=== PATIENT | male | born 1995 | race Caucasian/White ===

== ENCOUNTER 2020-08-23 12:28 | Emergency (ER) | payer BC, MEDICAID ==
[~2020-08-23] VITALS: Ht 182.9 cm; Wt 83.9 kg
[2020-08-23] MEDS ORDERED: LOSARTAN (12:48)
[2020-08-23] MEDS ORDERED: PERCOCET (12:48)
[2020-08-23] MEDS ORDERED: ADVIL (12:48)
[2020-08-23] MEDS ORDERED: IV NORMAL SALINE 250 ML IV ONE (12:57)
[2020-08-23] MEDS ORDERED: IOHEXOL 300MG/ML 100 ML INFUS..BTL ONE (12:57)
[2020-08-23] MEDS ORDERED: SWABABLE VALVE TRANSFER SET EA MC ONE (12:57)
[2020-08-23] MEDS ORDERED: MORPHINE SULFATE 4 MG/1 ML DISP.SYRIN IV ONE (13:00)
[2020-08-23] MEDS ORDERED: ONDANSETRON 4 MG/2 ML VIAL IV ONE (13:00)
[2020-08-23] MEDS ORDERED: MORPHINE SULFATE 4 MG/1 ML DISP.SYRIN ONE (13:05)
[2020-08-23 13:18] LABS: BASOPHILS % (AUTO) 0.7 % (0.0-2.0); EOSINOPHILS # (AUTO) 0.1 K/uL (0.0-0.7); EOSINOPHILS % (AUTO) 1.5 % (0.0-7.0); HEMATOCRIT 45.2 % (36.7-47.1); HEMOGLOBIN 15.1 g/dL (12.5-16.3); LYMPHOCYTES # (AUTO) 1.8 K/uL (20.0-40.0); LYMPHOCYTES % (AUTO) 32.8 % (20.5-51.5); MEAN CORPUSCULAR HEMOGLOBIN 29.5 uug (23.8-33.4); MEAN CORPUSCULAR HGB CONC 33 g/dL (32.5-36.3); MEAN CORPUSCULAR VOLUME 88.3 fL (73.0-96.2); MONOCYTES # (AUTO) 0.7 K/uL (2.0-10.0); MONOCYTES % (AUTO) 12.3 % (0.0-11.0); NEUTROPHILS # (AUTO) 2.9 K/uL (1.8-8.9); NEUTROPHILS % (AUTO) 52.7 % (38.5-71.5); PLATELET COUNT (AUTO) 285 K/uL (152-348); RED BLOOD CELL COUNT(AUTO) 5.12 MIL/uL (4.06-5.63); WHITE BLOOD COUNT (AUTO) 5.6 K/uL (3.6-10.2)
[2020-08-23 13:25] LABS: POTASSIUM 3.8 mmol/L (3.5-5.1)
[2020-08-23 13:32] LABS: BILIRUBIN,DIRECT 0.2 mg/dL (0.0-0.2); BILIRUBIN,TOTAL 1.1 mg/dL (0.2-1.0); TOTAL PROTEIN, SERUM 7.5 g/dL (6.4-8.2)
[2020-08-23 14:49] LABS: *BILIRUBIN,URIN NEGATIVE (NEGATIVE); *BLOOD, URINE TRACE (NEGATIVE); *COLOR,URINE YELLOW (YELLOW); *KETONES,URINE NEGATIVE (NEGATIVE); *UROBILINOGEN,URINE 0.2 E.U./dl (NORMAL); LEUKOCYTE ESTERASE ,URINE NEGATIVE (NEGATIVE); NITRITE, URINE NEGATIVE (NEGATIVE); PH,URINE 5.5 (5.0-8.0); UGLUCOSE NEGATIVE (NEGATIVE)
[2020-08-23 14:50] LABS: *CLARITY,URINE SLIGHTLY CLOUDY (CLEAR)
[2020-08-23] MEDS ORDERED: KETOROLAC TROMETHAMINE 15 MG INJ IVP ONE (15:00)
[2020-08-23] MEDS ORDERED: KETOROLAC TROMETHAMINE 15 MG INJ ONE (15:07)
--- NOTE | 2020-08-23 15:40 | NUR ---
Patient discharged to home in stable condition. Written and verbal after care instructions given. Patient verbalizes understanding of instructions. Stressed follow up or return to ER for worsening s/s.pt walks in steady gait. pt says feels better, pain down to 2/10, tolerable. pt accompanied by "[employer]stant". pt not driving
[2020-08-23 16:13] VITALS: BP 137/81
[2020-08-23 19:51] LABS: BACTERIA,URINE FEW /HPF (NONE SEEN); SQUAMOUS EPITHELIAL CELL,UR NONE SEEN /HPF (NONE SEEN)
== END 2020-08-23 15:40 | disposition home or self-care (01) ==
LOC: ER 12:28
DX: N20.1 Calculus of ureter (principal); R94.31 Abnormal electrocardiogram [ECG] [EKG]; R03.0 Elevated blood-pressure reading, without diagnosis of hypertension
CPT/HCPCS: 36415; 71045; 74177; 80048; 80076; 81001; 83605; 83690; 84484; 85025; 85730; 93005; 96374; 96375; 99285; J1885; J2270; Q9967; 70030-TC; A4663; J7050

== ENCOUNTER 2021-05-04 14:40 | Emergency (ER) | payer BC ==
[~2021-05-04] VITALS: Ht 182.9 cm; Wt 83.9 kg
[~2021-05-04 14:40] MED LIST: ADVIL; LOSARTAN; PERCOCET
[2021-05-04 15:31] LABS: MEAN CORPUSCULAR HEMOGLOBIN 30.5 uug (23.8-33.4); MEAN CORPUSCULAR VOLUME 87.5 fL (73.0-96.2); PLATELET COUNT (AUTO) 267 K/uL (152-348)
[2021-05-04 15:33] LABS: CREATININE 0.9 mg/dL (0.6-1.3); POTASSIUM 3.8 mmol/L (3.5-5.1)
[2021-05-04 15:38] LABS: BILIRUBIN,TOTAL 0.7 mg/dL (0.2-1.0); TOTAL PROTEIN, SERUM 7.4 g/dL (6.4-8.2)
[2021-05-04] MEDS ORDERED: HYDROCODONE/APAP 5-325MG TABLET ONE (16:03)
[2021-05-04] MEDS ORDERED: HYDROCODONE/APAP 5-325MG TABLET PO STA (16:16)
[2021-05-04] MEDS ORDERED: HYDROCODONE/APAP 5-325MG TABLET PO ONE (16:30)
--- NOTE | 2021-05-04 17:16 | NUR ---
Gave pt d/c instructions, pt verbalized understanding.
== END 2021-05-04 17:20 | disposition home or self-care (01) ==
LOC: EDBD 14:40 → ER 14:40
DX: R19.7 Diarrhea, unspecified (principal); Z87.442 Personal history of urinary calculi; R10.9 Unspecified abdominal pain
CPT/HCPCS: 36415; 83690; 85025; 86625; 87046; 87177; 89055; A4663

== ENCOUNTER 2023-07-24 04:42 | Emergency (ER) | payer BC ==
[~2023-07-24] VITALS: Ht 182.9 cm; Wt 89.8 kg
[2023-07-24] MEDS ORDERED: ASPIRIN 81 MG TAB.CHEW ONE (05:09)
[2023-07-24] MEDS ORDERED: ASPIRIN 81 MG TAB.CHEW PO ONE (05:15)
[2023-07-24] MEDS ORDERED: ALPRAZOLAM 0.25 MG TABLET PO ONE (05:15)
[2023-07-24] MEDS ORDERED: ALPRAZOLAM 0.5 MG TABLET ONE (05:16)
[2023-07-24 05:27] LABS: BASOPHILS # (AUTO) 0.1 K/UL (0.0-0.2); EOSINOPHILS # (AUTO) 0.2 K/uL (0.0-0.7); EOSINOPHILS % (AUTO) 2.8 % (0.0-7.0); HEMATOCRIT 44.6 % (36.7-47.1); HEMOGLOBIN 15.6 g/dL (12.5-16.3); LYMPHOCYTES # (AUTO) 3.1 K/uL (0.8-4.8); LYMPHOCYTES % (AUTO) 44.3 % (20.5-51.5); MEAN CORPUSCULAR HEMOGLOBIN 30.4 uug (23.8-33.4); MEAN CORPUSCULAR HGB CONC 35 g/dL (32.5-36.3); MEAN CORPUSCULAR VOLUME 86.7 fL (73.0-96.2); MONOCYTES # (AUTO) 0.7 K/uL (0.1-1.30); MONOCYTES % (AUTO) 10.2 % (0.0-11.0); NEUTROPHILS # (AUTO) 2.9 K/uL (1.8-8.9); NEUTROPHILS % (AUTO) 41.7 % (38.5-71.5); PLATELET COUNT (AUTO) 240 K/uL (152-348); RED BLOOD CELL COUNT(AUTO) 5.14 MIL/uL (4.06-5.63); RED CELL DISTRIBUTION WIDTH 12.5 % (12.1-16.2); WHITE BLOOD COUNT (AUTO) 7.1 K/uL (3.6-10.2)
[2023-07-24 06:03] LABS: ALANINE AMINOTRANSFERASE 128 U/L (16-63); ALKALINE PHOSPHATASE 92 U/L (50-136); ASPARTATE AMINOTRANSFERASE 42 U/L (15-37); BILIRUBIN,DIRECT 0.1 mg/dL (0.0-0.2); BILIRUBIN,TOTAL 0.6 mg/dL (0.2-1.0); CALCIUM 9.4 mg/dL (8.5-10.1); CARBON DIOXIDE 25 mmol/L (21-32); CHLORIDE 101 mmol/L (98-107); CREATININE 0.9 mg/dL (0.6-1.3); GLUCOSE 110 mg/dL (74-106); NT-PRO BNP 11 pg/mL (0-125); POTASSIUM 3.4 mmol/L (3.5-5.1); SODIUM SERUM 137 mmol/L (136-145); TOTAL PROTEIN, SERUM 7.6 g/dL (6.4-8.2); UREA NITROGEN, BLOOD 18 mg/dL (7-18)
[2023-07-24 06:10] LABS: DIFFERENTIAL COMMENT 1
[2023-07-24] MEDS ORDERED: MAG HYDROX/AL HYDROX/SIMETH 30 ML LIQUID UDC PO ONE (06:15)
[2023-07-24] MEDS ORDERED: DICYCLOMINE HCL LIQ 10 MG/5 ML UDC PO ONE (06:15)
[2023-07-24] MEDS ORDERED: LIDOCAINE VISCUS 2% 15 ML UDC MM ONE (06:15)
[2023-07-24] MEDS ORDERED: DICYCLOMINE HCL LIQ 10 MG/5 ML UDC ONE (06:18)
[2023-07-24] MEDS ORDERED: MAG HYDROX/AL HYDROX/SIMETH 30 ML LIQUID UDC ONE (06:18)
[2023-07-24] MEDS ORDERED: LIDOCAINE VISCUS 2% 15 ML UDC ONE (06:18)
[2023-07-24] MEDS ORDERED: OLME5TAB3 PO (06:19)
[2023-07-24 08:17] VITALS: O2SAT 97
== END 2023-07-24 08:27 | disposition home or self-care (01) ==
LOC: ER 04:49
DX: R07.89 Other chest pain (principal); Z79.899 Other long term (current) drug therapy
CPT/HCPCS: 36415; 71045; 84484; 85025; 93005; A4606; A4663